=== PATIENT | female | born 1930 | race Caucasian/White ===

== ENCOUNTER → 2017-07-16 | Outpatient (CLI) | payer MEDICARE ==
[~2017-07-16] MED LIST: ALLO100T PO; DONETAB6 PO; GEMF600T3 PO; MULTCAP45 PO; PANT40TA2 PO
[2017-07-16 16:46] LABS: Basophils # (auto) 0 uL; Basophils % (auto) 0.5 % (0.0-2.0); CONDITION Y; Eosinophils # (auto) 0.2 uL; Eosinophils % (auto) 2.4 % (0.0-7.0); Hematocrit 40.6 % (36.0-46.0); Hemoglobin 13.6 g/dL (12.2-16.2); Lymphocytes # (auto) 2.3 uL; Lymphocytes % (auto) 27.4 % (10.0-50.0); Mean Corpuscular Hemoglobin 29.9 pg (28.0-32.0); Mean Corpuscular Hgb Conc. 33.5 g/dL (32.0-36.0); Mean Corpuscular Volume 89.3 fL (80.0-100.0); Mean Platelet Volume 8.4 fL (7.4-10.4); Monocytes # (auto) 0.7 uL; Monocytes % (auto) 8.4 % (0.0-12.0); Neutrophils # (auto) 5.1 uL; Neutrophils % (auto) 61.3 % (37.0-80.0); Platelet Count (auto) 392 10^3/uL (140-450); Red Cell Distribution Width 14.6 % (11.6-16.0); White Blood Cell 8.3 10^3/uL (4.4-10.8)
[2017-07-16 17:23] LABS: Albumin 3.6 g/dL (3.4-5.0); BUN/Creatinine Ratio 19.2; Bilirubin, Total 0.5 mg/dL (0.2-1.0); Potassium 3.8 mmol/L (3.5-5.1); Total Protein 7.2 g/dL (6.4-8.2); Uric Acid 5.9 mg/dL (2.6-6.0)
== END | disposition home or self-care (01) ==
LOC: LAB 16:14
PROVIDERS: ATTEND Internal Medicine
DX: Z12.11 Encounter for screening for malignant neoplasm of colon (principal); I10 Essential (primary) hypertension; E78.4 Other hyperlipidemia; N39.0 Urinary tract infection, site not specified; K21.9 Gastro-esophageal reflux disease without esophagitis
CPT/HCPCS: 36415; 80053; 80061; 84443; 84550; 85025

== ENCOUNTER 2017-07-28 05:47 | Inpatient (IN) | payer MEDICARE ==
[~2017-07-28] VITALS: Ht 152.4 cm; Wt 63.8 kg
[2017-07-28 07:35] LABS: Basophils # (auto) 0 uL; Basophils % (auto) 0.3 % (0.0-2.0); CONDITION Y; Eosinophils # (auto) 0.1 uL; Eosinophils % (auto) 0.5 % (0.0-7.0); Hematocrit 40.3 % (36.0-46.0); Hemoglobin 13.6 g/dL (12.2-16.2); Lymphocytes # (auto) 1.1 uL; Lymphocytes % (auto) 6.7 % (10.0-50.0); Mean Corpuscular Hemoglobin 30.2 pg (28.0-32.0); Mean Corpuscular Hgb Conc. 33.8 g/dL (32.0-36.0); Mean Corpuscular Volume 89.4 fL (80.0-100.0); Mean Platelet Volume 8.3 fL (7.4-10.4); Monocytes # (auto) 0.9 uL; Monocytes % (auto) 5.6 % (0.0-12.0); Neutrophils # (auto) 13.9 uL; Neutrophils % (auto) 86.9 % (37.0-80.0); Platelet Count (auto) 325 10^3/uL (140-450); Red Cell Distribution Width 14.5 % (11.6-16.0)
[2017-07-28 07:47] LABS: INR 1.03 (0.9-1.15); Partial Thromboplastin Time 28.6 sec (22.64-33.71); Prothrombin Time 11.2 sec (9.37-12.3)
[2017-07-28 07:50] LABS: Albumin 3.2 g/dL (3.4-5.0); BUN/Creatinine Ratio 24.2; Calcium 8.7 mg/dL (8.5-10.1); Potassium 3.7 mmol/L (3.5-5.1)
[2017-07-28 07:55] LABS: Bilirubin, Total 0.3 mg/dL (0.2-1.0); Total Protein 6.4 g/dL (6.4-8.2)
[2017-07-28] MEDS ORDERED: SODIUM CHLORIDE 0.9% 1,000 ML IV ONE (08:22)
[2017-07-28] MEDS ORDERED: cefTRIAXone 1GM/50ML D5W 50 ML IV ONE (08:30)
[2017-07-28] MEDS: ALLOPURINOL 100 MG TAB PO SCH (13:14)
[2017-07-28] MEDS: PANTOPRAZOLE 40 MG TAB PO SCH (13:14)
[2017-07-28] MEDS: SODIUM CHLORIDE 0.9% 1,000 ML IV SCH (13:15)
[2017-07-28 14:01] LABS: Basophils # (auto) 0 uL; Basophils % (auto) 0.3 % (0.0-2.0); CONDITION Y; Eosinophils # (auto) 0.1 uL; Eosinophils % (auto) 0.7 % (0.0-7.0); Hematocrit 41.4 % (36.0-46.0); Hemoglobin 14.1 g/dL (12.2-16.2); Lymphocytes # (auto) 1.4 uL; Lymphocytes % (auto) 10.4 % (10.0-50.0); Mean Corpuscular Hemoglobin 30.1 pg (28.0-32.0); Mean Corpuscular Volume 88.4 fL (80.0-100.0); Mean Platelet Volume 8.4 fL (7.4-10.4); Monocytes # (auto) 0.8 uL; Neutrophils % (auto) 82.6 % (37.0-80.0); Platelet Count (auto) 343 10^3/uL (140-450); Red Cell Distribution Width 14.4 % (11.6-16.0); White Blood Cell 13.4 10^3/uL (4.4-10.8)
[2017-07-28 14:17] LABS: Albumin 3.2 g/dL (3.4-5.0); BUN/Creatinine Ratio 20.7; Calcium 8.9 mg/dL (8.5-10.1)
[2017-07-28 14:20] LABS: Bilirubin, Total 0.4 mg/dL (0.2-1.0); Total Protein 6.7 g/dL (6.4-8.2)
[2017-07-28 15:12] LABS: Urine Bilirubin Negative (Negative); Urine Blood TRACE /uL (Negative); Urine Color Yellow (Yellow); Urine Glucose Normal (Normal); Urine Ketone Negative (Negative); Urine Nitrite Negative (Negative); Urine RBC 1 /hpf (0 - 4); Urine Squamous Epithelial Cell FEW /hpf (<5); Urine Urobilinogen Normal (Negative); Urine pH 6.5 (5.0-8.0)
[2017-07-28 16:00] VITALS: BP 149/88
[2017-07-28 17:20] VITALS: BP 149/88
[2017-07-28 20:00] VITALS: BP 122/56
[2017-07-28 21:38] VITALS: BP 122/56
[2017-07-28] MEDS: GEMFIBROZIL 600 MG TAB PO SCH (21:54)
[2017-07-28] MEDS: DONEPEZIL HYDROCHLORIDE 5 MG TAB PO SCH (21:54)
[2017-07-28] MEDS ORDERED: DONEPEZIL HYDROCHLORIDE 5 MG TAB PO SCH (22:00)
[2017-07-29 04:00] VITALS: BP 140/65
[2017-07-29 06:55] LABS: Basophils # (auto) 0 uL; Basophils % (auto) 0.1 % (0.0-2.0); CONDITION Y; Eosinophils # (auto) 0.1 uL; Eosinophils % (auto) 0.5 % (0.0-7.0); Hematocrit 41.1 % (36.0-46.0); Hemoglobin 13.9 g/dL (12.2-16.2); Lymphocytes # (auto) 1.3 uL; Lymphocytes % (auto) 12.2 % (10.0-50.0); Mean Corpuscular Hemoglobin 29.9 pg (28.0-32.0); Mean Platelet Volume 8.4 fL (7.4-10.4); Monocytes # (auto) 0.7 uL; Monocytes % (auto) 6.4 % (0.0-12.0); Neutrophils # (auto) 8.7 uL; Neutrophils % (auto) 80.8 % (37.0-80.0); Platelet Count (auto) 354 10^3/uL (140-450); Red Cell Distribution Width 14.3 % (11.6-16.0); White Blood Cell 10.8 10^3/uL (4.4-10.8)
[2017-07-29 07:42] LABS: Albumin 3.2 g/dL (3.4-5.0); BUN/Creatinine Ratio 16.7; Bilirubin, Total 0.4 mg/dL (0.2-1.0); Calcium 9.1 mg/dL (8.5-10.1); Total Protein 6.7 g/dL (6.4-8.2)
[2017-07-29 08:00] VITALS: BP 163/73
[2017-07-29] MEDS: cefTRIAXone 1GM/50ML D5W 50 ML IV SCH (09:00)
[2017-07-29] MEDS ORDERED: cefTRIAXone 1GM/50ML D5W 50 ML IV SCH (09:00)
[2017-07-29] MEDS: SODIUM CHLORIDE 0.9% 1,000 ML IV SCH (09:00)
[2017-07-29] MEDS: GEMFIBROZIL 600 MG TAB PO SCH ×2 (09:52→21:43)
[2017-07-29] MEDS: ALLOPURINOL 100 MG TAB PO SCH (09:52)
[2017-07-29] MEDS: PANTOPRAZOLE 40 MG TAB PO SCH (09:52)
[2017-07-29 12:00] VITALS: BP 137/63
[2017-07-29 13:00] VITALS: BP 135/67
[2017-07-29 17:02] VITALS: BP 119/51
[2017-07-29] MEDS: DONEPEZIL HYDROCHLORIDE 5 MG TAB PO SCH (21:43)
[2017-07-29 22:00] VITALS: BP 125/64
[2017-07-30 05:00] VITALS: BP 158/91
[2017-07-30] MEDS: SODIUM CHLORIDE 0.9% 1,000 ML IV SCH (05:10)
[2017-07-30 07:38] VITALS: BP 165/79
[2017-07-30] MEDS: cefTRIAXone 1GM/50ML D5W 50 ML IV SCH (08:53)
[2017-07-30] MEDS: PANTOPRAZOLE 40 MG TAB PO SCH (09:55)
[2017-07-30] MEDS: GEMFIBROZIL 600 MG TAB PO SCH ×2 (09:55→21:32)
[2017-07-30] MEDS: ALLOPURINOL 100 MG TAB PO SCH (09:56)
[2017-07-30] MEDS ORDERED: ACETAMINOPHEN 500 MG TAB PO PRN (10:15)
[2017-07-30 12:07] VITALS: BP 135/63
[2017-07-30] MEDS: BOOST PLUS 8 ounce PO SCH ×2 (12:07→18:11)
[2017-07-30 16:37] VITALS: BP 136/69
[2017-07-30] MEDS: DONEPEZIL HYDROCHLORIDE 5 MG TAB PO SCH (21:32)
[2017-07-30 22:05] VITALS: BP 127/72
[2017-07-31] MEDS: SODIUM CHLORIDE 0.9% 1,000 ML IV SCH ×2 (02:00→21:00)
[2017-07-31 05:46] VITALS: BP 123/53
[2017-07-31 06:31] LABS: Basophils # (auto) 0.1 uL; Basophils % (auto) 0.7 % (0.0-2.0); CONDITION Y; Eosinophils # (auto) 0.2 uL; Hematocrit 35.8 % (36.0-46.0); Hemoglobin 12.1 g/dL (12.2-16.2); Lymphocytes # (auto) 1.8 uL; Lymphocytes % (auto) 19.1 % (10.0-50.0); Mean Corpuscular Hemoglobin 30.1 pg (28.0-32.0); Mean Corpuscular Hgb Conc. 33.8 g/dL (32.0-36.0); Mean Corpuscular Volume 88.9 fL (80.0-100.0); Mean Platelet Volume 8.8 fL (7.4-10.4); Monocytes % (auto) 10.6 % (0.0-12.0); Neutrophils # (auto) 6.2 uL; Neutrophils % (auto) 67.6 % (37.0-80.0); Platelet Count (auto) 332 10^3/uL (140-450); Red Cell Distribution Width 14.5 % (11.6-16.0); White Blood Cell 9.2 10^3/uL (4.4-10.8)
[2017-07-31 06:49] LABS: Potassium 4.2 mmol/L (3.5-5.1)
[2017-07-31 06:55] LABS: Albumin 2.6 g/dL (3.4-5.0); BUN/Creatinine Ratio 32.8; Calcium 8.1 mg/dL (8.5-10.1)
[2017-07-31 06:58] LABS: Bilirubin, Total 0.2 mg/dL (0.2-1.0); Total Protein 5.8 g/dL (6.4-8.2)
[2017-07-31 09:00] VITALS: BP 144/72
[2017-07-31] MEDS: cefTRIAXone 1GM/50ML D5W 50 ML IV SCH (11:24)
[2017-07-31] MEDS: GEMFIBROZIL 600 MG TAB PO SCH ×2 (11:24→21:27)
[2017-07-31] MEDS: ALLOPURINOL 100 MG TAB PO SCH (11:24)
[2017-07-31] MEDS: PANTOPRAZOLE 40 MG TAB PO SCH (11:24)
[2017-07-31] MEDS: BOOST PLUS 8 ounce PO SCH ×2 (11:24→11:40)
[2017-07-31 13:00] VITALS: BP 158/81
[2017-07-31 16:44] VITALS: BP 124/52
[2017-07-31 20:00] VITALS: BP 146/77
[2017-07-31] MEDS: DONEPEZIL HYDROCHLORIDE 5 MG TAB PO SCH (21:27)
[2017-08-01 06:13] VITALS: BP 159/78
[2017-08-01] MEDS: BOOST PLUS 8 ounce PO SCH ×3 (08:00→12:29)
[2017-08-01 08:09] VITALS: BP 150/69
[2017-08-01 12:25] VITALS: BP 121/81
[2017-08-01] MEDS: cefTRIAXone 1GM/50ML D5W 50 ML IV SCH (12:28)
[2017-08-01] MEDS: PANTOPRAZOLE 40 MG TAB PO SCH (12:29)
[2017-08-01] MEDS: ALLOPURINOL 100 MG TAB PO SCH (12:29)
[2017-08-01] MEDS: GEMFIBROZIL 600 MG TAB PO SCH (12:29)
== END 2017-08-01 12:45 | DRG 605 ==
LOC: ER 05:47 → EDBD 05:47 → TELE 05:48 → TELE-CENTR 17:32 → CENTRAL 07-30 23:08
PROVIDERS: ADMIT Internal Medicine; ATTEND Internal Medicine
DX: S00.03XA Contusion of scalp, initial encounter (principal); N39.0 Urinary tract infection, site not specified; E87.1 Hypo-osmolality and hyponatremia; G30.9 Alzheimer's disease, unspecified; F02.80 Dementia in other diseases classified elsewhere, unspecified severity, without behavioral disturbance, psychotic disturbance, mood disturbance, and anxiety; W01.0XXA Fall on same level from slipping, tripping and stumbling without subsequent striking against object, initial encounter; E78.5 Hyperlipidemia, unspecified; H35.30 Unspecified macular degeneration; I10 Essential (primary) hypertension; R41.3 Other amnesia; K21.9 Gastro-esophageal reflux disease without esophagitis; M10.9 Gout, unspecified; Z79.899 Other long term (current) drug therapy; Z82.49 Family history of ischemic heart disease and other diseases of the circulatory system; Z90.49 Acquired absence of other specified parts of digestive tract; Z95.0 Presence of cardiac pacemaker; Z86.73 Personal history of transient ischemic attack (TIA), and cerebral infarction without residual deficits; Z88.6 Allergy status to analgesic agent; Z88.8 Allergy status to other drugs, medicaments and biological substances; Y93.89 Activity, other specified; Y92.89 Other specified places as the place of occurrence of the external cause; Y99.8 Other external cause status
CPT/HCPCS: 36415; 51702; 70450; 71010; 72125; 73502; 80053; 81001; 84484; 85025; 85610; 85730; 87040; 87086; 93005; 96361; 96365; 96366; 97163; J0696